=== PATIENT | female | born 1940 | race Caucasian/White ===

== ENCOUNTER → 2017-08-04 | Outpatient (CLI) | payer BC ==
[~2017-08-04] MED LIST: ASPI-1471 PO; ASPI-692 PO; ATOR20TA65 PO; CYCL-277 PO; DONE10TA89 PO; DOXY-179 PO; FLU180SY9 IM; FLU45SYR17 IM; FLU45SYR25 IM ONLY; LISI-362 PO; LISI5TAB25 PO; PNEI IJ; PNEU0.5D3 IM; PRED20TA6 PO; ZOST19404 SQ
--- NOTE | 2017-08-04 15:09 | RADIOLOGY IMAGING REPORT ---
FACILITY: [facility] [place] PATIENT NAME: Mary Kate Castañeda : 1940 MR: [id number] V: [id number] EXAM DATE: ORDERING PHYSICIAN: ADI COSBY TECHNOLOGIST: Location: Patient: Mary Kate Castañeda : 1940 Visit/Account:[id number] Date of Sevice: 08/04/2017 BRAIN W/O CONTRAST Comparisons: Report from head CT scan dated January 06, 2016 Additional pertinent history: Memory changes TECHNIQUE: Multiplanar, multisequence brain MRI was performed without gadolinium contrast. FINDINGS: Sagittal midline structures and craniocervical junction: Negative. Midline shift: None. Ventricles: Negative. Brain parenchyma: Diffusion weighted imaging: Negative. Gradient sequence: Negative. T2 weighted FLAIR images: Patchy and confluent regions of abnormal increased T2 signal within the p eriventricular and subcortical white matter, nonspecific but likely representing small vessel ischemi c change on a chronic basis. Extra-axial spaces: Mild cerebral atrophy. Dural venous sinuses and major arterial flow voids: Negative. Mastoid air cells and paranasal sinuses: Negative. Surrounding soft tissues and orbits: Negative. Impression: 1. Age related changes as described above. 2. No evidence of acute intracranial pathology. Report Dictated By: Amrik Nix MD at 08/04/2017 3:01 PM Report E-Signed By: Amrik Nix MD at 08/04/2017 3:04 PM WSN:[id number]
== END ==
LOC: MRI 04:25
PROVIDERS: ATTEND Nurse Practitioner Family
DX: G31.9 Degenerative disease of nervous system, unspecified (principal)
CPT/HCPCS: 70551

== ENCOUNTER → 2018-02-07 | Outpatient (CLI) | payer BC ==
[~2018-02-07] MED LIST changes: +MEMA28CA PO; +MEMA5TAB2 PEG
[2018-02-07 09:57] LABS: PLATELET COUNT, AUTOMATED 201 K/uL (150-450)
[2018-02-07 10:13] LABS: LDL CHOLESTEROL 78 mg/dl
== END ==
LOC: LAB 09:08
PROVIDERS: ATTEND Nurse Practitioner Family
DX: E04.1 Nontoxic single thyroid nodule (principal); I10 Essential (primary) hypertension
CPT/HCPCS: 36415; 82040; 82247; 82310; 82374; 82435; 82465; 82565; 82947; 83718; 84075; 84132; 84155; 84295; 84443; 84450; 84460; 84478; 84520; 85025

== ENCOUNTER 2018-06-07 14:19 | Emergency (ER) | payer MEDICARE, BC ==
[~2018-06-07 14:19] MED LIST changes: +valACYclovir HCL 500 MG TAB PO SCH
--- NOTE | 2018-06-07 14:36 | ER Report ---
History and Physical Time Seen By MD: 14:36 Hx. of Stated Complaint: PATIENT IS REPORTING THAT THE SKIN ON HER LEFT SIDE OF UPPER BACK AND LEFT SIDE OF UPPER CHEST. SHE DID SOME RESEARCH ON HER INTERNET AND BELIEVES THAT IT COULD BE SHINGLES HPI/ROS Sharp pain from left trapezius to left shoulder worsening for 3 days. Pain is stabbing/burning. No trauma, no meningismus, no rashes. No focal weakness or paresthesias. No AMAYA. Remainder of the 14 system rev: Yes Allergies: Coded Allergies: No Known Drug Allergies (Unverified , 08/18/14) Home Meds Active Scripts Valacyclovir Hcl (VALACYCLOVIR) 1,000 Mg Tablet, 1000 MG PO Q8H for 7 Days, #21 Prov:REBECCA ENRIQUEZ MD 06/07/18 Lisinopril (LISINOPRIL) 10 Mg Tablet, 1 TAB PO QDAY, #90 TAB 3 Refills Prov:ADI COSBY APRNP-C 02/09/18 Memantine Hcl (NAMENDA XR) 28 Mg Cap.spr.24, 1 TAB PO DAILY, #90 TAB 3 Refills Prov:ADI COSBY APRNP-C 02/09/18 Donepezil Hcl (ARICEPT) 10 Mg Tablet, 1 TAB PO QDAY, #90 TAB 3 Refills Prov:ADI COSBY APRNP-C 02/09/18 Atorvastatin Calcium (ATORVASTATIN CALCIUM) 20 Mg Tablet, 1 TAB PO QDAY, #90 TAB 3 Refills Prov:ADI COSBY APRNP-C 02/09/18 Reported Medications Aspirin (ASPIR 81) 81 Mg Tablet., 1 TAB PO QDAY, TAB 05/30/17 Aspirin/Acetaminophen/Caffeine (EXCEDRIN MIGRAINE CAPLET) 1 Each Tablet, 1 EACH PO PRN for MIGRAINE 08/18/14 Reviewed Nurses Notes: Yes Old Medical Records Reviewed: Yes Smoking Status: Never Smoker Constitutional Vital Sign - Last 24 Hours 06/07/18 06/07/18 06/07/18 06/07/18 14:24 14:25 14:30 14:49 Temp 97.5 Pulse 63 58 Resp 20 B/P (MAP) 141/103 (116) 141/103 160/99 (119) Pulse Ox 94 96 O2 Delivery Room Air 06/07/18 15:00 B/P (MAP) 143/97 (112) Physical Exam General Appearance: The patient is alert, has no immediate need for airway protection and no current signs of toxicity. Eyes: Pupils equal and round no injection. Respiratory: Chest is non tender, lungs are clear to auscultation. Cardiac: regular rate and rhythm Gastrointestinal: Abdomen is soft and non tender, no masses, bowel sounds normal. Musculoskeletal: Trigger point illicited in left upper later trapezius. Reproduces symptoms Neck: Neck is supple and non tender. Extremities have full range of motion and are non tender. Skin: No rashes or lesions. 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 No trauma. Otherwise normal no exam. No rashes, but symptoms of pain can precede the rash. She was given a dose of Valtrex in the emergency department and discharged with a prescription for 7 days. Decision to Disposition Date: Jun 07, 2018 Decision to Disposition Time: 15:11 Depart Departure Latest Vital Signs Vital Signs Date Time Temp Pulse Resp B/P (MAP) Pulse Ox O2 Delivery O2 Flow Rate FiO2 06/07/18 15:00 143/97 (112) 06/07/18 14:49 58 96 06/07/18 14:25 97.5 20 Room Air Impression: Primary Impression: Shingles Condition: Improved Disposition: HOME OR SELF-CARE Referrals: ADI COSBY APRN [employer]-C (PCP) New Scripts Valacyclovir Hcl (VALACYCLOVIR) 1,000 Mg Tablet 1000 MG PO Q8H for 7 Days, #21 Prov: REBECCA ENRIQUEZ MD 06/07/18 Patient Instructions: Shingles (ED) Problem Qualifiers Primary Impression: Shingles Herpes zoster complications: without complications Qualified Codes: B02.9 - Zoster without complications REBECCA ENRIQUEZ MD Jun 07, 2018 14:36
[2018-06-07] MEDS ORDERED: valACYclovir HCL 500 MG TAB PO ONE ×3 (14:50→15:15)
[2018-06-07 15:00] VITALS: BP 143/97
[2018-06-07] MEDS ORDERED: VALA100059 PO (15:12)
[2018-06-07] MEDS ORDERED: valACYclovir HCL 500 MG TAB PO SCH (17:00)
== END 2018-06-07 15:38 | disposition home or self-care (01) ==
LOC: ER 14:41
DX: B02.9 Zoster without complications (principal)
CPT/HCPCS: 99283; A9270

== ENCOUNTER → 2018-08-09 | Outpatient (CLI) | payer BC ==
[~2018-08-09] MED LIST changes: +LIDO700A19 TOP; +VALA100059 PO; -valACYclovir HCL 500 MG TAB PO SCH
== END ==
LOC: LAB 11:11
PROVIDERS: ATTEND Nurse Practitioner Family
DX: I10 Essential (primary) hypertension (principal)
CPT/HCPCS: 36415; 82040; 82247; 82310; 82374; 82435; 82565; 82947; 84075; 84132; 84155; 84295; 84450; 84460; 84520

== ENCOUNTER → 2018-11-12 | Outpatient (CLI) | payer BC ==
[~2018-11-12] MED LIST changes: +CHOL500016 PO; +MULT-991 PO
[2018-11-12 11:25] LABS: PLATELET COUNT, AUTOMATED 204 K/uL (150-450)
== END ==
LOC: LAB 10:21
PROVIDERS: ATTEND Nurse Practitioner Family
DX: E55.9 Vitamin D deficiency, unspecified (principal); R19.7 Diarrhea, unspecified; I10 Essential (primary) hypertension
CPT/HCPCS: 36415; 82040; 82247; 82306; 82310; 82374; 82435; 82565; 82947; 84075; 84132; 84155; 84295; 84450; 84460; 84520; 85025